=== PATIENT | male | born 1975 | race Caucasian/White ===

== ENCOUNTER 2023-11-05 20:13 | Emergency (ER) | payer BC, OTHER | END 2023-11-05 23:18 | disposition home or self-care (01) | LOC: JD.ED 20:13 | DX: S61.511A Laceration without foreign body of right wrist, initial encounter (principal); Z88.0 Allergy status to penicillin; W26.0XXA Contact with knife, initial encounter | CPT/HCPCS: 12001; 73110-26-RT; 73110-RT; 99283 ==